=== PATIENT | female | born 1975 | race Caucasian/White ===

== ENCOUNTER 2023-10-24 11:39 | Outpatient (CLI) | payer BC, SELFPAY | END 2023-10-24 11:40 | disposition home or self-care (01) | PROVIDERS: PCP Family Medicine; Visit Provider Family Medicine | DX: L30.9 Dermatitis, unspecified (principal); R53.83 Other fatigue | CPT/HCPCS: 80053; 82306; 84443; 84630; 86364 ==

== ENCOUNTER 2025-08-11 08:15 | Outpatient (CLI) | payer BC, SELFPAY | END 2025-08-11 08:16 | disposition home or self-care (01) | LOC: NFLDREF 08-16 04:14 | PROVIDERS: PCP Family Medicine; Visit Provider Family Medicine | DX: Z00.00 Encounter for general adult medical examination without abnormal findings (principal); Z83.49 Family history of other endocrine, nutritional and metabolic diseases | CPT/HCPCS: 80053; 84443 ==